=== PATIENT | female | born 1955 | race Caucasian/White ===

== ENCOUNTER → 2020-03-14 | Outpatient (CLI) | payer OTHER ==
[~2020-03-14] MED LIST: COVID-19 VACC, MRNA(MODERNA)/PF 100 MCG/0.5 ML VIAL IM ONE
== END ==
LOC: VACCPMC 18:00
DX: Z23 Encounter for immunization (principal); Z20.822 Contact with and (suspected) exposure to COVID-19

== ENCOUNTER → 2020-04-10 | Outpatient (CLI) | payer OTHER | END | DRG 951 | LOC: VACCPMC 10:13 | DX: Z23 Encounter for immunization (principal); Z20.822 Contact with and (suspected) exposure to COVID-19 | CPT/HCPCS: 0012A; 91301 ==

== ENCOUNTER → 2021-01-07 | Outpatient (CLI) | payer OTHER | LOC: VACCPMC 09:30 | DX: Z23 Encounter for immunization (principal); Z20.822 Contact with and (suspected) exposure to COVID-19 | CPT/HCPCS: 91301 ==

== ENCOUNTER 2024-04-04 09:00 | Outpatient (RCR) | payer MEDICARE, BC ==
[~2024-04-04 09:00] MED LIST changes: -COVID-19 VACC, MRNA(MODERNA)/PF 100 MCG/0.5 ML VIAL IM ONE; +CRESTOR10 MG PO; +CYCLOBENZAPRINE10 MG PO; +EAC PO; +ESTRADIOL PO; +HYDROCHLOROTHIA25 MG PO; +LEVOTHYROXINE100 MC1 PO; +LOSARTAN POTAS100 MG PO; +MELOXICAM7.5 MG PO; +SEMAGLUTIDE SC; +TURMERIC500 M1 PO; +ZOLPIDEM TARTRAT5 MG PO; +ZYRTEC10 M3 PO
== END 2024-04-06 ==
LOC: PT 09:00
PROVIDERS: ATTEND Internal Medicine
DX: R42 Dizziness and giddiness (principal)

== ENCOUNTER 2024-05-02 09:00 | Outpatient (RCR) | payer MEDICARE, BC | END 2024-05-04 | LOC: PT 09:00 | PROVIDERS: ATTEND Internal Medicine | DX: R42 Dizziness and giddiness (principal); M53.82 Other specified dorsopathies, cervical region ==

== ENCOUNTER 2024-05-07 08:31 | Outpatient (RCR) | payer MEDICARE, BC | END 2024-06-04 | LOC: PT 08:31 | PROVIDERS: ATTEND Internal Medicine | DX: R42 Dizziness and giddiness (principal) ==